=== PATIENT | male | born 1990 | race African-American/Black ===

== ENCOUNTER 2018-05-21 20:22 | Emergency (ER) | payer OTHER ==
[~2018-05-21] VITALS: Ht 172.7 cm; Wt 95.3 kg
[2018-05-21 20:38] VITALS: Ht 172.7 cm; Wt 95.3 kg
[2018-05-21 23:28] VITALS: BP 147/89
== END 2018-05-21 23:28 | disposition left against medical advice (07) ==
LOC: ED 20:22
DX: S13.9XXA Sprain of joints and ligaments of unspecified parts of neck, initial encounter (principal); S20.219A Contusion of unspecified front wall of thorax, initial encounter; V49.9XXA Car occupant (driver) (passenger) injured in unspecified traffic accident, initial encounter; Y93.I9 Activity, other involving external motion; Y92.413 State road as the place of occurrence of the external cause; Y99.8 Other external cause status
CPT/HCPCS: J1885; J2270; J7030; Q0092; Q9967

== ENCOUNTER 2018-05-22 20:45 | Emergency (ER) | payer OTHER | END 2018-05-22 21:05 | disposition left against medical advice (07) | LOC: ED 20:45 | DX: Z53.21 Procedure and treatment not carried out due to patient leaving prior to being seen by health care provider (principal) ==